=== PATIENT | female | born 1955 | race Caucasian/White ===

== ENCOUNTER 2024-09-27 12:42 | Emergency (ER) | payer MEDICARE, SELFPAY ==
--- OUTSIDE RECORDS SUMMARY | 2024-09-17 05:30 | XMS_ITS ---
Author Organization [employer] Address [address] [place] [address], [place] [address] Care Team Providers Care Tank Filler Name Role Phone None, None Primary Care Provider Indira Walker Unavailable [phone] Allergies No Known Allergies REASON FOR VISIT 4 week f/u Medications Medication SIG (Take, Route, Frequency, Duration) Notes Start Date End Date Status Claritin 10 MG 1 tablet Orally Once a day Active Collagen 500-50-0.8 MG as directed Orally Active Metoprolol Tartrate 25 MG 1 tablet with food Orally daily Active Multivitamin - 1 tablet Orally Once a day Active Social History Tobacco Use: Social History Observation Description Date Details (start date - stop date) Never Smoker NA - NA Tobacco Control (Standard) Question Answer Notes Tobacco use: Nonsmoker Vital Signs Blood pressure systolic 112 mm Hg 09/18/19 25 Blood pressure diastolic 70 mm Hg 025 Heart Rate 75 /min 09/17/2024 Respiratory Rate 16 /min 09/17/2024 Height 61 in 09/17/2024 Weight 160.0 lbs 09/17/2024 BMI 30.23 kg/m2 09/17/2024 Oximetry 98 % 09/17/2024 Encounters Encounter Location Date Provider Diagnosis [employer] [address] [place] [address] 09/17/2024 Indira Nettles Other fatigue R53.83 ; Dyslipidemia E78.5 ; SVT (supraventricular tachycardia) I47.10 ; Dietary counseling and surveillance Z71.3 ; PTTD (posterior tibial tendon dysfunction) M76.829 ; Inappropriate diet and eating habits Z72.4 ; Other intermediate accountant (current) drug therapy Z79.899 and Body mass index [BMI] 32.0-32.9, adult Z68.32 Assessments Encounter Date Diagnosis (ICD Code) Assessment Notes Treatment Notes Treatment Clinical Notes Section Notes 09/17/2024 Other fatigue (ICD-10 - R53.83) 09/17/2024 Dyslipidemia (ICD-10 - E78.5) 09/17/2024 SVT (supraventricular tachycardia) (ICD-10 - I47.10) 09/17/2024 Dietary counseling and surveillance (ICD-10 - Z71.3) 09/17/2024 PTTD (posterior tibial tendon dysfunction) (ICD-10 - M76.829) 09/17/2024 Inappropriate diet and eating habits (ICD-10 - Z72.4) 09/17/2024 Other intermediate accountant (current) drug therapy (ICD-10 - Z79.899) 09/17/2024 Body mass index [BMI] 32.0-32.9, adult (ICD-10 - Z68.32) Plan Of Treatment Next Appt Details Follow Up: 1wk inj, 4wk MORTGAGE ASSISTANT , Reason: [facility] Provider Name:Indira roberto, 10/01/2024 10:15:00 AM, [address] [place] [address], [place], [address], Provider Name:Indira roberto, 10/15/2024 09:45:00 AM, [address] [place] [address], [place], [address], Medications Administered Medication Instructions Date of Administration Dosage Notes Tirzepatide 09/17/2024 2.5 mg Progress Notes * Valentin MATIAS ADOB: 8 (69 yo F)Acc No.[id number]:09/17/2024 Progress Notes Patient: Valentin MC A Provider: Shikha Nettles APRN, ANNOUNCER :1955 A ge:69 Y S ex:Female Date:09/17/2024 Address:[address] [place] [address] [place], [id number] Subjective: * Chief Complaints: * 1 . 4 week f/u. * HPI: C onstitutional: Ms. Matias is a 68 year old female n ew patient with SVT and a history of skin cancer who presents today for weight loss consultation. She has a family history of ESRD, DM, thyroid cancer (non hereditary), [place], and obesity on her fathers side. H er PCP is at [facility] in [place], blood work was done in the last year. She has no periods, went through menopause at the age of 52. She has been diagnosed with PTTD and was told surgery could help but she would r ather work on weight loss for relief of her symptoms. She seen a physician in [facility] for this about 2 years ago. She has limited her activity due to the PTTD a nd avoids activites that exacerbate her pain and discomfort. With the reduced activity she is slowly gaining weight. She started gaining weight more in her late 20s, little by little. She didn't have issues as a child or teen, she weighed 105 as a younger person. As she got older she maintained around 168 pounds and wanted to lose weight at this size. 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 She is more fatigued and has poor energy levels. She finds it harder getting back up off floor with the weight gain. This is her highest weight. She has tried different diets including HCG diet with good weight loss of about 15 pounds. She k ept it off for a while but then went back to old eating habits. She has never taken any medications for weight loss before. She tends to eat t wo meals a day, eating more carbs and d oes get full quickly. She does eat out a lot but has smaller portions and will eat it over several days. 3 weeks ago she cut out candy. She has a gym membership for [employer] but hasn't started using it yet. Right now she is following an I MF diet, eating b etween 12p-6p. 09/17/24: Found a bag of summer clothes in her garage and found she can fit into some of them that she couldn't before. Having good apeptite suppression. Has had some cravings but she is working through it and montiroing her portions. She is down 6 pounds. She has had more salt the last week and has noted a little bit of a fluid retention. 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 * ROS: G eneral/Constitutional: Patient denies f ever , fatigue , chills , night sweats.? E ndocrine: Patient denies c old intolerance , heat intolerance , dizziness , frequent urination , excessive thirst. R espiratory: Patient denies c ough , shortness of breath , hemoptysis.? C ardiovascular: Patient denies c hest pain , dizziness , heart problems , high blood pressure. G astrointestinal: Patient denies a bdominal pain , constipation , diarrhea , nausea , vomiting. G enitourinary: Patient denies k idney problems. S kin: Patient denies r efe , itching , skin lesion(s). P sychiatric: Patient denies s ubstance abuse , feelings of depression , feelings of anxiety. * Medical History: S upraventricular tachycardia, Basal cell carcinoma, Posterior Tibial Tendon Dysfunction. * Surgical History: r emoval of basal cell- to face . * Family History: F ather: , 83- pulmonary fibrosis, CHF, atrial fibrillation. M other: , 85- ESRD, heart problems- limited history. P aternal Grand Father: , [place]. Siblings: alive, sister- diabetes and thyroid cancer (not hereditary). paternal side with history of obesity. * Social History: T obacco Use: T obacco Control (Standard) T obacco use: N onsmoker. * Medications: T aking Collagen 500-50-0.8 MG Capsule as directed Orally , Taking Claritin 10 MG Tablet 1 tablet Orally Once a day , Taking Multivitamin - Tablet 1 tablet Orally Once a day , Taking Metoprolol Tartrate 25 MG Tablet 1 tablet with food Orally daily , Medication List reviewed and reconciled with the patient * Allergies: N .K.D.A. Objective: * Vitals: H R:75/min, BP:112/70mm Hg, Wt:160.0lbs, Body Fat %: 37.9, BMI:30.23Index, RR:16/min, Ht: 61 in, Oxygen sat %:98%, Ht-cm: 154.94 cm, Wt-k.58 kg. * Examination: G eneral Examination: GENERAL APPEARANCE: p leasant, well nourished, in no acute distress. HEAD: n ormocephalic. SKIN: w arm and dry. HEART: n o jugular venous distention, no murmurs, regular rate and rhythm, S1, S2 normal. LUNGS: c lear to auscultation bilaterally. ABDOMEN: s oft, nontender, nondistended, bowel sounds present. PSYCH: c ooperative with exam, good eye contact, thought process logical, goal directed. Weight Assessment W eight Assessment Findings: O verweight. Assessment: * Assessment: 1. D yslipidemia - E78.5 (Primary) 2 . O ther fatigue - R53.83 ?3. S VT (supraventricular tachycardia) - I47.10 4 . D ietary counseling and surveillance - Z71.3 5 . P TTD (posterior tibial tendon dysfunction) - M76.829 6 . I nappropriate diet and eating habits - Z72.4 7 . O ther intermediate accountant (current) drug therapy - Z79.899 8 . B panda mass index [BMI] 32.0-32.9, adult - Z68.32 Plan: * Treatment: * Therapeutic Injections: (PATIENT SUPPLY) TIRZEPATIDE : 2.5 mg (Route: Subcutaneous) given by SHIVANI Sebastian on left arm subcutaneous * Procedure Codes: P TIRZ TIRZEPATIDE (PATIENT SUPPLY) * Follow Up: 1 wk inj, 4wk WILLOW (Reason: [facility]) * Billing Information: * Visit Code: 81176 Office Visit, Est Pt., Level 3. * Procedure Codes: PTIRZ TIRZEPATIDE (PATIENT SUPPLY). * Electronic signature of SHIVANI Naranjo on 09/27/2024 at 12:50 PM CDT Sign off status: Pending * Provider: Shikha Nettles APRN, CNP Date: 0 09/17/2024 Generated for Tiffanie gama/Lesa/eTmanoloitting on: 09/27/2024 12:50 PM CDT History and Physical Notes * Examination Category Sub-Category Detail Notes Category Not es General Examination GENERAL APPEARANCE: pleasant , well nourished, in no acute distress HEAD: normocephalic HEART: no jugular venous di stention, no murmurs, regular rate and rhythm, S1, S2 normal LUNGS: clear to auscultatio n bilaterally ABDOMEN: soft, nontender, non distended, bowel sounds present SKIN: warm and dry PSYCH: cooperative with exa m, good eye contact, thought process logical, goal directed Weight Assessment Weight Assessment Findings:: O verweight
--- OUTSIDE RECORDS SUMMARY | 2024-09-24 05:00 | XMS_ITS ---
Author Organization [employer] Address [address] [place] [address], [place] [address] Care Team Providers Care Automotive Vehicle Inspector Name Role Phone None, None Primary Care Provider Indira Walker Unavailable [phone] REASON FOR VISIT TIRZEPATIDE INJECTION Medications Medication SIG (Take, Route, Frequency, Duration) Notes Start Date End Date Status Collagen 500-50-0.8 MG as directed Orally Active Multivitamin - 1 tablet Orally Once a day Active Claritin 10 MG 1 tablet Orally Once a day Active Metoprolol Tartrate 25 MG 1 tablet with food Orally daily Active Vital Signs Heart Rate 85 /min 09/24/2024 Height 61 in 09/24/2024 Weight 158.0 lbs 09/24/2024 BMI 29.85 kg/m2 09/24/2024 Oximetry 98 % 09/24/2024 Encounters Encounter Location Date Provider Diagnosis [employer] [address] [place] [address] 09/24/2024 Indira Nettles Dyslipidemia E78.5 Assessments Encounter Date Diagnosis (ICD Code) Assessment Notes Treatment Notes Treatment Clinical Notes Section Notes 09/24/2024 Dyslipidemia (ICD-10 - E78.5) Plan Of Treatment Next Appt Details Follow Up: 1 Week, Reason: C linic-inj. Provider Name:Indira roberto, 10/01/2024 10:15:00 AM, [address] [place] [address], [place], [address], Provider Name:Indira roberto, 10/15/2024 09:45:00 AM, [address] [place] [address], [place], [address], Medications Administered Medication Instructions Date of Administration Dosage Notes Tirzepatide 09/24/2024 5 mg Progress Notes * Valentin JERRY ADOB: 8 (69 yo F)Acc No.[id number]:09/24/2024 Progress Note Patient: Valentin MC Provider: Shikha Nettles APRN, CNP :1955 A ge:69 Y S ex:Female Date:09/24/2024 Address:[facility] [place], [id number] Subjective: * Chief Complaints: * 1 . TIRZEPATIDE INJECTION. * HPI: C onstitutional: Pt. presents to clinic for Clinic Supply of Tirzepatide 2.5 Mg. Pt. reports tolerating medication well with no adverse events to note. Pt. states she is experiencing food noise increasingly often with less likelihood of getting full while eating. Pt. was offered an increase at this time to which pt. agreed. Pt. will be increase to 5 Mg. Tirz. today. * Medical History: * Medications: T aking Collagen 500-50-0.8 MG Capsule as directed Orally , Taking Claritin 10 MG Tablet 1 tablet Orally Once a day , Taking Multivitamin - Tablet 1 tablet Orally Once a day , Taking Metoprolol Tartrate 25 MG Tablet 1 tablet with food Orally daily Objective: * Vitals: H R:85/min, Wt:158.0lbs, BMI:29.85Index, Ht: 61 in, Oxygen sat %:98%, Ht-cm: 154.94 cm, Wt-k.67 kg. Assessment: * Assessment: 1. D yslipidemia - E78.5 (Primary) Plan: * Treatment: * Therapeutic Injections: (PATIENT SUPPLY) TIRZEPATIDE : 5 mg (Route: Subcutaneous) given by Manuel Reynolds LPN on subcutaneus (Dyslipidemia) * Procedure Codes: P TIRZ TIRZEPATIDE (PATIENT SUPPLY) * Follow Up: 1 Week (Reason: Clinic-inj.) * Billing Information: * Visit Code: * Procedure Codes: PTIRZ TIRZEPATIDE (PATIENT SUPPLY). * Sign off status: Completed true * Provider: Shikha Nettles APRN, CNP Date: 0 09/24/2024 Generated for Tiffanie Landon/Ronaldo on: 0 09/27/2024 12:50 PM CDT
--- OUTSIDE RECORDS SUMMARY | 2024-09-27 12:51 | XMS_ITS | Patient Health Record ---
Author Organization [facility] Address [address] [place], [place] [address] Care Team Providers Care Revenue Director Name Role Phone Caleb Muir Primary Care Provider MariiMaryanne strauss APRN Unavailable [phone] Caleb Muir MD Unavailable Unavailable Allergies Allergen (clinical drug ingredient) Drug/Non Drug Allergy documented on EMR Reaction Allergy Type Onset Date Status Wheat wheat (uncoded) SVT/AFIB Allergy Acti ve Results Component Value Reference Range Notes TSH Reviewed date:08/27/2024 02:41:09 PM Interpretation: Performing Lab:[facility] HARRIS-[id number] Vandana [id number] Rosario Butcher MD Notes/Report: Received Date: [id number] 0 0 TSH 2.42 0.40-4.50 mIU/L CMP Reviewed date:08/27/2024 02:40:47 PM Interpretation: Performing Lab:[facility] HARRIS-[id number] Pepe Lopez, [id number] Rosario Butcher MD Notes/Report: Received Date: [id number] 0 0 GLUCOSE 75 65-99 mg/dL Fasting reference interval UREA NITROGEN (BUN) 16 7-25 mg/dL CREATININE 0.79 0.50-1.05 mg/dL EGFR 82 > OR = 60 mL/min/1.73m2 BUN/CREATININE RATIO SEE NOTE: 6- (calc) Not Reported: BUN and Creatinine are within reference range. SODIUM 139 135-146 mmol/L POTASSIUM 3.9 3.5-5.3 mmol/L CHLORIDE 105 98-110 mmol/L CARBON DIOXIDE 25 20-32 mmol/L CALCIUM 10.0 8.6-10.4 mg/dL PROTEIN, TOTAL 6.7 6.1-8.1 g/dL ALBUMIN 4.1 3.6-5.1 g/dL GLOBULIN 2.6 1.9-3.7 g/dL (calc) ALBUMIN/GLOBULIN RATIO 1.6 1.0-2.5 (calc) BILIRUBIN, TOTAL 0.4 0.2-1.2 mg/dL ALKALINE PHOSPHATASE 54 37-153 U/L AST 16 10-35 U/L ALT 16 6-29 U/L CBC Reviewed date:08/27/2024 02:40:14 PM Interpretation: Performing Lab: Notes/Report: Lab Notes: Aspiration mode: Cap Piercing CMP Reviewed date:02/27/2024 03:11:44 PM Interpretation:ATCP-no Vm option Performing Lab:[facility], Dine perfect-[id number] Pepe Lopez, [id number] Rosario Butcher MD Notes/Report: Received Date: 0 0 0 GLUCOSE 77 65-99 mg/dL Fasting reference interval UREA NITROGEN (BUN) 18 7-25 mg/dL CREATININE 0.74 0.50-1.05 mg/dL EGFR 89 > OR = 60 mL/min/1.73m2 BUN/CREATININE RATIO SEE NOTE: 6-22 (calc) Not Reported: BUN and Creatinine are within reference range. SODIUM 139 135-146 mmol/L POTASSIUM 4.1 3.5-5.3 mmol/L CHLORIDE 104 98-110 mmol/L CARBON DIOXIDE 29 20-32 mmol/L CALCIUM 9.9 8.6-10.4 mg/dL PROTEIN, TOTAL 6.7 6.1-8.1 g/dL ALBUMIN 4.0 3.6-5.1 g/dL GLOBULIN 2.7 1.9-3.7 g/dL (calc) ALBUMIN/GLOBULIN RATIO 1.5 1.0-2.5 (calc) BILIRUBIN, TOTAL 0.4 0.2-1.2 mg/dL ALKALINE PHOSPHATASE 53 37-153 U/L AST 15 10-35 U/L ALT 16 6-29 U/L LIPID PANEL Reviewed date:02/27/2024 03:01:38 PM Interpretation: Performing Lab:[facility] HARRIS-[id number] Pepe Lopez, [id number] Rosario Butcher MD Notes/Report: Received Date: [id number] 0 0 0 CHOLESTEROL, TOTAL 194 <200 mg/dL HDL CHOLESTEROL 51 > OR = 50 mg/dL TRIGLYCERIDES 206 <150 mg/dL If a non-fasting specimen was collected, consider repeat triglyceride testing on a fasting specimen if clinically indicated. Daniella et al. J. of Clin. Lipidol. 2015;9:129-169. LDL-CHOLESTEROL 111 Reference range: <100 Desirable range <100 mg/dL for primary prevention; <70 mg/dL for patients with CHD or diabetic patients with > or = 2 CHD risk factors. LDL-C is now calculated using the Bubba calculation, which is a validated novel method providing better accuracy than the Friedewald equation in the estimation of LDL-C. Tal SS et al. BAILEY. 2013;310(19): 0691-3244 (http://education.[employer]/faq/FAQ16 4) CHOL/HDLC RATIO 3.8 <5.0 (calc) NON HDL CHOLESTEROL 143 <130 mg/dL (calc) For patients with diabetes plus 1 major ASCVD risk factor, treating to a non-HDL-C goal of <100 mg/dL (LDL-C of <70 mg/dL) is considered a therapeutic option. TSH Reviewed date:02/27/2024 03:01:31 PM Interpretation: Performing Lab:[facility] HARRIS-[id number] Pepe Lopez, [id number] Rosario Butcher MD Notes/Report: Received Date: [id number] 0 0 0 TSH 2.75 0.40-4.50 mIU/L CBC Reviewed date:02/27/2024 03:01:24 PM Interpretation: Performing Lab: Notes/Report: Lab Notes: Aspiration mode: Cap Piercing URINALYSIS DIP Reviewed date:02/27/2024 03:01:16 PM Interpretation: Performing Lab: Notes/Report: [employer] ([id number]), [facility] Manager Discovery: BG Notes: Electrocardiogram (EKG) Reviewed date:02/27/2024 01:58:23 PM Interpretation: Performing Lab: Notes/Report: Chest X ray (PA lateral) Reviewed date:02/28/2024 10:44:29 AM Interpretation: Performing Lab: Notes/Report: Reason For Referral Reason Eval and Treat Diagnosis 1 Hearing loss of righ t ear, unspecified hearing loss type (H91.91) Referral Organization [facility] Referring Provider First Name [facility] Referring Provider Last Name [facility] Referring Provider Speciality Nurse Prac titioner Referred Provider Jabari Jones Referred Provider Specialty Otolaryngolo gy General Notes Senait Owens 02/06 02:06:34 PM >Requesting an appt pleaseTheo Tiffany S 03/17/2024 12:33:41 PM >notes in chart Referral Priority Routine Referral Appointment Date 03/17/2024 Reason Eval and Treat Diagnosis 1 History of basal austin l cancer (Z85.828) Diagnosis 2 History of melanoma (Z85.820) Referral Organization [facility] Referring Provider First Name [facility] Referring Provider Last Name [facility] Referring Provider Speciality Nurse Prac titioner Referred Provider Darci Hope Referred Provider Specialty Dermatology General Notes Senait Owens 02/06 01:43:54 PM >Requesting an appt please Referral Priority Routine Medications Medication SIG (Take, Route, Frequency, Duration) Notes Start Date End Date Status Multivitamin - 1 tablet Orally Once a day Active D-Mannose Active Digestive Advantage Active Metoprolol Tartrate 25 MG 1 tablet with food Orally once a day; Duration: 90 days Active Social History Tobacco Use: Social History Observation Description Date Details (start date - stop date) Never Smoker NA - NA Smoker Question Answer Notes Patient is a: never smoker Alcohol Question Answer Notes How often did you have a dri nk containing alcohol in the past year? never (0 points) Problems Problem Type SNOMED Code ICD Code Onset Dates Problem Status W/U Status Risk Notes Problem ROVER TENDER patient onl y (Z63.8) Active confirmed Problem External hemorrhoid (49345138) External hemorrhoid (K64.4) Active confirmed Problem Diverticular disease of colon (048795285) Diverticulosis (K57.90) Active confirmed Problem Hearing loss (83443348) Hearing loss of right ear, unspecified hearing loss type (H91.91) Active confirmed Problem History of malignant melanoma of the skin (035149292614) History of melanoma (Z85.820) Active confirmed Vital Signs Heart Rate 68 /min 08/26/2024 Temperature 97.9 degrees Fahrenheit 08/26/2024 Oximetry 95 08/26/2024 Blood pressure diastolic 70 mm Hg 08/26/2024 Height 61 in 08/26/2024 Blood pressure systolic 110 mm Hg 08/26/2024 Weight 165.6 lbs 08/26/2024 BMI 31.29 kg/m2 08/26/2024 Encounters Encounter Location Date Provider Diagnosis [address] [address] 02/26/2024 Maryanne Colvin SVT (supraventricula r tachycardia) I47.10 ; Postmenopausal Z78.0 ; Other fatigue R53.83 ; Encounter for screening for diabetes mellitus Z13.1 ; Encounter for screening for lipid disorder Z13.220 ; Encounter for screening for cardiovascular disorders Z13.6 ; Hearing loss of right ear, unspecified hearing loss type H91.91 ; History of basal cell cancer Z85.828 ; History of melanoma Z85.820 ; LLQ abdominal pain R10.32 ; External hemorrhoid K64.4 ; Mammogram declined Z53.20 ; Diverticulosis K57.90 and Encounter to establish care Z76.[address] [address] 08/26/2024 Maryanne Colvin Screening for cardiovascular condition Z13.6 ; Encounter for general adult medical examination without abnormal findings Z00.00 ; ROVER TENDER patient only Z63.8 ; Hearing loss of right ear, unspecified hearing loss type H91.91 ; History of melanoma Z85.820 ; External hemorrhoid K64.4 ; Diverticulosis K57.90 ; Medication management Z79.899 ; Screening mammography declined Z53.20 ; SVT (supraventricular tachycardia) I47.10 and History of basal cell cancer Z85.[address] [address] 02/12/2024 Caleb Muir Assessments Encounter Date Diagnosis (ICD Code) Assessment Notes Treatment Notes Treatment Clinical Notes Section Notes 02/26/2024 Postmenopausal (ICD-10 - Z78.0) 02/26/2024 SVT (supraventricular tachycardia) (ICD-10 - I47.10) stable on metoprolol 08/26/2024 Encounter for general adult medical examination without abnormal findings (ICD-10 - Z00.00) 08/26/2024 Screening for cardiovascular condition (ICD-10 - Z13.6) 08/26/2024 ROVER TENDER patient only (ICD-10 - Z63.8) 02/26/2024 Other fatigue (ICD-10 - R53.83) stable labs pending 02/26/2024 Encounter for screening for diabetes mellitus (ICD-10 - Z13.1) 08/26/2024 Hearing loss of right ear, unspecified hearing loss type (ICD-10 - H91.91) stable 08/26/2024 History of melanoma (ICD-10 - Z85.820) following [facility] 02/26/2024 Encounter for screening for lipid disorder (ICD-10 - Z13.220) 02/26/2024 Encounter for screening for cardiovascular disorders (ICD-10 - Z13.6) 08/26/2024 External hemorrhoid (ICD-10 - K64.4) discussed care 02/26/2024 Hearing loss of right ear, unspecified hearing loss type (ICD-10 - H91.91) exam normal, will refer to ENT 08/26/2024 Diverticulosis (ICD-10 - K57.90) controlled with diet/supplement s 08/26/2024 Medication management (ICD-10 - Z79.899) 02/26/2024 History of basal cell cancer (ICD-10 - Z85.828) refer to [facility] 02/26/2024 History of melanoma (ICD-10 - Z85.820) refer to [facility] 08/26/2024 Screening mammography declined (ICD-10 - Z53.20) understands risk 02/26/2024 LLQ abdominal pain (ICD-10 - R10.32) will get CT scan with recent abnormal colonoscopy 02/26/2024 External hemorrhoid (ICD-10 - K64.4) discussed care 08/26/2024 SVT (supraventricular tachycardia) (ICD-10 - I47.10) stable on metoprolol 08/26/2024 History of basal cell cancer (ICD-10 - Z85.828) following [facility] 02/26/2024 Mammogram declined (ICD-10 - Z53.20) understands risk 02/26/2024 Diverticulosis (ICD-10 - K57.90) controlled with diet/supplement s 02/26/2024 Encounter to establish care (ICD-10 - Z76.89) 02/26/2024 Other Patient evaluated and treated by Maryanne Colvin APRN and chart reviewed and signed off by Dr. Muir. 08/26/2024 Other Patient evaluated and treated by Maryanne Colvin APRN and chart reviewed and signed off by Dr. Muir. Visit Summary given to patient I REVIEWED THE PATIENT'S MEDICATIONS WITH THEM DURING THEIR VISIT Plan Of Treatment Pending Test Test Name Order Date Bone Density 02/26/2024 Next Appt Details Provider Name:Maryanne strauss, 02/27/2025 09:30:00 AM, [address] [place], [address], Insurance Providers Payer Name Payer Address Payer Phone Subscriber Number Group Number Insured Name Patient Relationship to Insured Coverage Start Date Coverage End Date [employer] [address] [address] [place] [address] [id number] Valentin Matias Self - patient is the insured Medical (General) History Medical History History ICD Code Basil cell and melanoma skin cancer
--- OUTSIDE RECORDS SUMMARY | 2024-09-27 12:51 | XMS_ITS | Patient Health Record ---
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 Role Phone None, None Primary Care Provider Indira Walker Unavailable [phone] Allergies No Known Allergies Reason For Referral No Information Medications Medication SIG (Take, Route, Frequency, Duration) Notes Start Date End Date Status Collagen 500-50-0.8 MG as directed Orally Active Multivitamin - 1 tablet Orally Once a day Active Claritin 10 MG 1 tablet Orally Once a day Active Metoprolol Tartrate 25 MG 1 tablet with food Orally daily Active Social History Tobacco Use: Social History Observation Description Date Details (start date - stop date) Never Smoker NA - NA Tobacco Control (Standard) Question Answer Notes Tobacco use: Nonsmoker Problems Problem Type SNOMED Code ICD Code Onset Dates Problem Status W/U Status Risk Notes Problem Fatigue (87072917) Other fatigue (R53.83) Active confirmed Problem Body mass index 30.00 to 34.99 (330458599769574) Body mass index [BMI] 31.0-31.9, adult (Z68.31) Active confirmed Problem Body mass index 30.00 to 34.99 (674971090724821) Body mass index [BMI] 32.0-32.9, adult (Z68.32) Active confirmed Problem Body mass index 30.00 to 34.99 (781874339424351) Body mass index [BMI] 33.0-33.9, adult (Z68.33) Active confirmed Problem Supraventricular tachycardia (4758401) SVT (supraventr icular tachycardia ) (I47.10) Active confirmed Problem Tibialis tendinitis (64133588) PTTD (posterior tibial tendon dysfunction ) (M76.829) Active confirmed Vital Signs Heart Rate 85 /min 09/24/2024 Respiratory Rate 16 /min 09/17/2024 Oximetry 98 % 09/24/2024 Blood pressure diastolic 70 mm Hg 09/17/2024 Height 61 in 09/24/2024 Blood pressure systolic 112 mm Hg 09/17/2024 Weight 158.0 lbs 09/24/2024 BMI 29.85 kg/m2 09/24/2024 Encounters Encounter Location Date Provider Diagnosis [address] [place] [address] 09/17/2024 Indira Yoon Other fatigue R53.83 ; Dyslipidemia E78.5 ; SVT (supraventricular tachycardia) I47.10 ; Dietary counseling and surveillance Z71.3 ; PTTD (posterior tibial tendon dysfunction) M76.829 ; Inappropriate diet and eating habits Z72.4 ; Other buttermaker (current) drug therapy Z79.899 and Body mass index [BMI] 32.0-32.9, adult Z68.32 [facility] [address] [place] [address] 06/25/2024 Indira Yoon Other fatigue R53.83 ; SVT (supraventricular tachycardia) I47.10 ; Dietary counseling and surveillance Z71.3 ; Weight gain R63.5 ; PTTD (posterior tibial tendon dysfunction) M76.829 ; Inappropriate diet and eating habits Z72.4 ; Other retirement (current) drug therapy Z79.899 and Body mass index [BMI] 33.0-33.9, adult Z68.33 [facility] [address] [place] [address] 07/02/2024 Indira [place] Other retirement (current) drug therapy Z79.899 [facility] [address] [place] [address] 07/09/2024 Indira Yoon Other buttermaker (current) drug therapy Z79.899 ; Other fatigue R53.83 and SVT (supraventricular tachycardia) I47.10 [facility] [address] [place] [address] 07/16/2024 Indira [place] Other buttermaker (current) drug therapy Z79.899 and SVT (supraventricular tachycardia) I47.[address] [facility] [address] [place] [address] 07/23/2024 Indira Yoon Other fatigue R53.83 ; Dyslipidemia E78.5 ; SVT (supraventricular tachycardia) I47.10 ; Dietary counseling and surveillance Z71.3 ; PTTD (posterior tibial tendon dysfunction) M76.829 ; Inappropriate diet and eating habits Z72.4 ; Other buttermaker (current) drug therapy Z79.899 and Body mass index [BMI] 32.0-32.9, adult Z68.32 [facility] [address] [place] [address] 07/30/2024 Indira [place] SVT (supraventricula r tachycardia) I47.10 and Inappropriate diet and eating habits Z72.4 [facility] [address] [place] [address] 08/06/2024 Indira [place] SVT (supraventricula r tachycardia) I47.10 and Inappropriate diet and eating habits Z72.4 [facility] [address] [place] [address] 08/13/2024 Indira Yoon Inappropriate diet a nd eating habits Z72.4 [facility] [address] [place] [address] 08/20/2024 Indira Yoon Other fatigue R53.83 ; Dyslipidemia E78.5 ; SVT (supraventricular tachycardia) I47.10 ; Dietary counseling and surveillance Z71.3 ; PTTD (posterior tibial tendon dysfunction) M76.829 ; Inappropriate diet and eating habits Z72.4 ; Other buttermaker (current) drug therapy Z79.899 and Body mass index [BMI] 31.0-31.9, adult Z68.31 [facility] [address] [place] [address] 08/27/2024 Indira Yoon Dyslipidemia E78.5 [facility] [address] [place] [address] 09/03/2024 Indira Yoon Dyslipidemia E78.5 [facility] [address] [place] [address] 09/10/2024 Indira [place] Dyslipidemia E78.5 [facility] [address] [place] [address] 09/24/2024 Indira Yoon Dyslipidemia E78.5 [facility] [address] [place] [address] 08/06/2024 Indira [place]ett[place] [facility] [address] [place] [address] 08/20/2024 Indira Nettles Assessments Encounter Date Diagnosis (ICD Code) Assessment Notes Treatment Notes Treatment Clinical Notes Section Notes 06/25/2024 Other fatigue (ICD-10 - R53.83) I will request labs from her PCP for our records. Should I need anything else I will let her know. May consider a vitamin D. 06/25/2024 SVT (supraventricular tachycardia) (ICD-10 - I47.10) Her HR is controlled with metoprolol. She will continue on this as prescribed by her PCP. I will avoid phentermine for weight loss to prevent any rhythm issues. 07/02/2024 Other buttermaker (current) drug therapy (ICD-10 - Z79.899) 07/09/2024 Other retirement (current) drug therapy (ICD-10 - Z79.899) 07/16/2024 Other buttermaker (current) drug therapy (ICD-10 - Z79.899) 07/23/2024 Other fatigue (ICD-10 - R53.83) 07/23/2024 Dyslipidemia (ICD-10 - E78.5) Labs were received and reviewed from Dr. Vasquez in [place]. Triglycerides and LDL are elevated. 08/06/2024 SVT (supraventricular tachycardia) (ICD-10 - I47.10) No changes to her symptoms, continue taking metoprolol. 08/13/2024 Inappropriate diet and eating habits (ICD-10 - Z72.4) 08/20/2024 Other fatigue (ICD-10 - R53.83) 08/27/2024 Dyslipidemia (ICD-10 - E78.5) 09/03/2024 Dyslipidemia (ICD-10 - E78.5) 09/10/2024 Dyslipidemia (ICD-10 - E78.5) 09/17/2024 Other fatigue (ICD-10 - R53.83) 07/30/2024 SVT (supraventricular tachycardia) (ICD-10 - I47.10) No changes to her symptoms, continue taking metoprolol. 09/24/2024 Dyslipidemia (ICD-10 - E78.5) 08/06/2024 Inappropriate diet and eating habits (ICD-10 - Z72.4) 08/20/2024 SVT (supraventricular tachycardia) (ICD-10 - I47.10) 08/20/2024 Dyslipidemia (ICD-10 - E78.5) She will continue to work on her diet, exercise, and weight loss. 07/30/2024 Inappropriate diet and eating habits (ICD-10 - Z72.4) 09/17/2024 Dyslipidemia (ICD-10 - E78.5) 07/23/2024 SVT (supraventricular tachycardia) (ICD-10 - I47.10) No changes to her symptoms, continue taking metoprolol. 07/16/2024 SVT (supraventricular tachycardia) (ICD-10 - I47.10) Her HR is controlled with metoprolol. She will continue on this as prescribed by her PCP. I will avoid phentermine for weight loss to prevent any rhythm issues. 07/09/2024 Other fatigue (ICD-10 - R53.83) I will request labs from her PCP for our records. Should I need anything else I will let her know. May consider a vitamin D. 06/25/2024 Dietary counseling and surveillance (ICD-10 - Z71.3) We have discussed the importance of diet, exercise, water, and sleep in weight loss. I have educated patient that 5-7% weight loss is a good initial attainable goal, and has health benefits of reduced risk of HTN and DM, etc. We have discussed the negative impact of skipping meals on metabolism, and I recommend either 6 small meals a day vs. 3 meals and 2 snacks. We have discussed pros and cons of different diet approaches including low carb, IM, and calorie counting. I have provided patient with handouts on the DASH diet to use as a guide for healthy food choices and reviewed handout with patient. For healthy weight loss, I have recommended that patient aim for a protein minimum of 100g, and maximum of 1400 calories per day. I have also given patient handout of high protein foods/snack choices. I have recommended using an dominguez like [employer], [employer], etc. for logging this. Recommended increasing water intake with an ultimate goal of 80oz per day (body weight/2= # of oz). Exercise goal 30 min 3x per week of intentional exercise or 10,000 steps per day, which patient can keep track of with a smart watch or smart phone. Sleep goal of 8 hours per night. We have discussed the importance of normal sleep hours for the body to rest and sleeps influence on hormone levels that can ultimately affect weight loss. Patient verbalizes understanding that medication is an addition to these 4 core requirements for healthy lifestyle and weight loss. We have reviewed medication options including short vs. buttermaker use, and oral vs. injectable routes including Phentermine, Topiramate, Contrave, Semaglutide, etc. Side effect profile reviewed. Patient would like to start tirzepatide injections. Patient will receive first dose today at 2.5mg and return weekly for injections. Administration, dosage titration, and studies showing 1 year of therapy for maximum medication benefit were discussed. Side effect profiles reviewed include swelling/redness /itching at the injection site, tiredness, nausea, vomiting, diarrhea, or constipation may occur. Nausea usually lessens as you continue to use Semaglutide. Risk of pancreas and gallbladder disease (s/s persistent N/V, abdominal, or stomach pain) and thyroid gland malignancy (including MTC). We also reviewed and discussed the pricing sheet for the medication along with other costs including self injection vs. office injections. She is aware of the FDAs decision on compounded tirzepatide and how this will affect her in the future. She will need to order a vial as soon as she is able. She will come back to see me in a month for further evaluation of her weight and goals. Before pictures and measurements were obtained today. I strongly recommended that she do a body composition scan at [facility] via [facility] or with Keke Varela at [facility] via InBody scan for more detailed/accurat e body fat percentage. I will request labs from her PCP for our records. Patient encouraged to call sooner with any questions or concerns. All question that were asked were answered. Patient is satisfied with plan of care. 07/09/2024 SVT (supraventricular tachycardia) (ICD-10 - I47.10) Her HR is controlled with metoprolol. She will continue on this as prescribed by her PCP. I will avoid phentermine for weight loss to prevent any rhythm issues. 07/23/2024 Dietary counseling and surveillance (ICD-10 - Z71.3) As she is having good weight loss and appetite suppression I will continue her tirzepatide at 2.5mg weekly. I had a long discussion with her on the other positive signs that she is having and again discussed a healthy safe weightloss amount per week/month with her. She is doing well with her diet and has started being more active. She is aware that there are no changes to the FDAs decision on compounded tirzepatide. She will need to order a vial in the next 1-2 weeks, once done a prescription will be sent to [facility]. I discussed a body comp again today and how this can provide an insightful look at her body fat and muscle. Should she have one done she will bring the results to me. I will see her back with me in a month for further evaluation of her weight and goals. All questions were answered and she agrees with this plan. 06/25/2024 Weight gain (ICD-10 - R63.5) 08/20/2024 Dietary counseling and surveillance (ICD-10 - Z71.3) As she is doing well with weight loss and continued appetite suppression she will continue with tirzepatide 2.5mg weekly. She will continue to eat well and stay active. I praised her on her hard work. Should she travel she will let me know so we can make a plan to continue tirzepatide. I will see her back with me in a month for further evaluation of her weight and goals. All questions were answered and she agrees with this plan. 09/17/2024 SVT (supraventricular tachycardia) (ICD-10 - I47.10) 08/20/2024 PTTD (posterior tibial tendon dysfunction) (ICD-10 - M76.829) 07/23/2024 PTTD (posterior tibial tendon dysfunction) (ICD-10 - M76.829) 09/17/2024 Dietary counseling and surveillance (ICD-10 - Z71.3) 06/25/2024 PTTD (posterior tibial tendon dysfunction) (ICD-10 - M76.829) 06/25/2024 Inappropriate diet and eating habits (ICD-10 - Z72.4) 07/23/2024 Inappropriate diet and eating habits (ICD-10 - Z72.4) 08/20/2024 Inappropriate diet and eating habits (ICD-10 - Z72.4) 09/17/2024 PTTD (posterior tibial tendon dysfunction) (ICD-10 - M76.829) 08/20/2024 Other buttermaker (current) drug therapy (ICD-10 - Z79.899) 09/17/2024 Inappropriate diet and eating habits (ICD-10 - Z72.4) 07/23/2024 Other buttermaker (current) drug therapy (ICD-10 - Z79.899) 06/25/2024 Other buttermaker (current) drug therapy (ICD-10 - Z79.899) 06/25/2024 Body mass index [BMI] 33.0-33.9, adult (ICD-10 - Z68.33) 07/23/2024 Body mass index [BMI] 32.0-32.9, adult (ICD-10 - Z68.32) 09/17/2024 Other retirement (current) drug therapy (ICD-10 - Z79.899) 08/20/2024 Body mass index [BMI] 31.0-31.9, adult (ICD-10 - Z68.31) 09/17/2024 Body mass index [BMI] 32.0-32.9, adult (ICD-10 - Z68.32) 06/25/2024 Other I spent approximately 45 minutes with patient reviewing health history, dietary and exercise habits, educating on lifestyle changes and purpose/side effects of medication and formulating patient centered plan of care. Plan Of Treatment Next Appt Details Provider Name:Indira roberto, 10/01/2024 10:15:00 AM, [address] [place] [address], [phone], Provider Name:Indira roberto, 10/15/2024 09:45:00 AM, [address] [place] [address], [phone], Insurance Providers Payer Name Payer Address Payer Phone Subscriber Number Group Number Insured Name Patient Relationship to Insured Coverage Start Date Coverage End Date [facility] [address] [address] [place] [phone] [id number] Valentin JERRY Self - patient is the insured Medications Administered Medication Instructions Date of Administration Dosage Notes Tirzepatide 08/20/2024 2.5 mg Tirzepatide 08/27/2024 2.5 mg Tirzepatide 09/03/2024 2.5 mg Tirzepatide 09/10/2024 2.5 mg Tirzepatide 09/17/2024 2.5 mg Tirzepatide 09/24/2024 5 mg Tirzepatide 06/25/2024 2.5 mg Tirzepatide 07/02/2024 2.5 mg Tirzepatide 07/09/2024 2.5 mg Tirzepatide 07/16/2024 2.5 mg Tirzepatide 07/23/2024 2.5 mg Tirzepatide 07/30/2024 2.5 mg Tirzepatide 08/06/2024 2.5 mg Tirzepatide 08/13/2024 2.5 mg Medical (General) History Medical History History ICD Code supraventricular tachycardia basal cell carcinoma Posterior Tibial Tendon Dysfunction Surgical History Surgery Date(Month/Year) removal of basal cell- to face
[2024-09-27 12:59] VITALS: BP 115/80; PULSE 76; RESP 16; TEMP 36.7; O2SAT 97; BMI 29.2
[2024-09-27 13:09] VITALS: BP 127/86; PULSE 73; RESP 14; O2SAT 97
--- NOTE | 2024-09-27 13:22 | CTR_ITS ---
PROCEDURE INFORMATION: Exam: CT Head Without Contrast Exam date and time: 09/27/2024 1:52 PM Age: 69 years old Clinical indication: Pain; Headache; Additional info: Posterior headache TECHNIQUE: Imaging protocol: Computed tomography of the head without contrast. Radiation optimization: All CT scans at this facility use at least one of these dose optimization techniques: automated exposure control; mA and/or kV adjustment per patient size (includes targeted exams where dose is matched to clinical indication); or iterative reconstruction. COMPARISON: No relevant prior studies available. RADIATION DOSE METRICS: Total DLP (mGy-cm): 1013.59 FINDINGS: Brain: Mild age-appropriate cortical atrophy. Mild periventricular white matter hypoattenuation which likely represent chronic ischemic small-vessel disease. No acute intracranial hemorrhage. No acute territorial infarction. Cerebral ventricles: No ventriculomegaly. Paranasal sinuses: Visualized sinuses are unremarkable. No fluid levels. Mastoid air cells: Visualized mastoid air cells are well aerated. Bones: Unremarkable. No acute fracture. Soft tissues: Unremarkable. CT/CT head wo con* [id number] IMPRESSION: No acute intracranial abnormality.
[2024-09-27 14:41] VITALS: BP 117/82; PULSE 78; O2SAT 94
[2024-09-27 15:01] VITALS: BP 111/79; PULSE 73; O2SAT 94
--- NOTE | 2024-09-27 15:45 | W.ED.HA ---
Documented by User: CHANDA Andrade 09/27/24 15:49 HPI - Headache General: Chief Complaint: Headache Stated Complaint: pain in back of skull / headache Time Seen by Provider: 09/27/24 13:08 Source: patient Mode of arrival: ambulatory Limitations: no limitations History of Present Illness: Patient is a 69-year-old female who presents with a headache that began yesterday, described as posterior headache and radiating down in the neck and towards the left ear. She reports associated dizziness and transient difficulty with comprehension at home, prompting her ED visit. She notes recent increase in her Trileptal dose and subsequently learned that headache can be a potential side effect, she is concerned about this. She denied fever, vision changes, photophobia, nausea, vomiting, weakness, or sensory changes. Of note, she reports her brother had a brain tumor and she was concerned about this possibility and is notably anxious at this time. She is taken ibuprofen with relief, and at the time of examination in the ED, stating she is headache free and feels well. She has no pertinent past medical history, no history of hypertension. No history of stroke. She is not anticoagulated. Does not report any head trauma. MD elicited complaint: headache Onset (ago): day(s) Onset description: on awakening Location: occipital and down into neck Severity: mild Quality & Timing: aching Context: new medication Associated symptoms: Deny chest pain, fever(s), lightheadedness, nausea, rash or vomiting Treatments prior to arrival: ibuprofen Related Data Home Medications ?Medication ?Instructions ?Recorded ?Confirmed metoprolol tartrate 25 mg tablet 25 mg PO DAILY 09/27/24 09/27/24 tirzepatide (weight loss) 5 mg/0.5 5 mg SUBCUT Q7D 09/27/24 09/27/24 mL subcutaneous pen injector Allergies Allergy/AdvReac Type Severity Reaction Status Date / Time No Known Allergies Allergy Verified 09/27/24 13:02 Review of Systems General: Reports: 10 or more systems reviewed and unremarkable except in HPI and below Const: Denies: fever(s), chills or fatigue Eyes: Denies: change in vision ENMT: Denies: throat pain, ear or mastoid pain or nasal discharge Card: Denies: chest pain, palpitations, swelling of feet/ankles or lightheadedness Resp: Denies: dyspnea, productive cough or wheezing GI: Denies: abdominal pain, nausea, vomiting, diarrhea or constipation : Denies: flank pain, difficulty voiding, dysuria or urinary frequency Musc: Reports: neck pain; Denies: back pain or joint pain Skin/Breast: Denies: rash Neuro: Reports: headache(s) and dizziness; Denies: numbness in extremities or weakness in extremities Physical Exam Const: COMMON NORMALS: no acute distress, patient oriented x3 and no limitations GENERAL APPEARANCE: cooperative, well developed and anxious ORIENTATION/CONSCIOUSNESS: Yes awake, Yes oriented to person, Yes oriented to place and Yes oriented to time HENMT: COMMON NORMALS: normocephalic, atraumatic and hearing grossly normal bilaterally HEAD & SCALP: normocephalic and atraumatic Eye: COMMON NORMALS: Equal, round and reactive pupils present, EOMs intact bilaterally and conjunctivae normal CONJUNCTIVA: Yes conjunctivae normal PUPIL: Yes Equal, round and reactive pupils present Neck/C-Spine: COMMON NORMALS: full ROM, supple and no JVD CERVICAL SPINE: Yes cervical ROM normal, No pain with cervical ROM and No Cervical spine tenderness Resp: COMMON NORMALS: normal respiratory effort, No retractions, No use of accessory muscles and clear to auscultation bilaterally AUSCULTATION: clear to auscultation bilaterally Cardio: COMMON NORMALS: no JVD, regular rate, regular rhythm, No clicks present (Cardio), No murmurs present (Cardio) and No rub (Cardio) RATE: regular rate RHYTHM: regular rhythm Extremity: COMMON NORMALS: normal to inspection, full ROM and capillary refill normal Neuro: COMMON NORMALS: patient oriented x3, CN's II-XII intact bilaterally, moves all extremities, no focal motor deficits and no sensory deficits noted SENSORIUM/ORIENTATION: Yes oriented to person, Yes oriented to place and Yes oriented to time COORDINATION/BALANCE: [id number] test normal, ovee-[id number] test normal and tandem gait normal GAIT: Yes Normal gait present MOTOR EXAM: 5/5 motor strength present throughout, Pronator motor function not present, no tremor noted, no asterixis, Motor fasciculations not present and Normal motor muscle tone present throughout COORDINATION: [id number] test normal, fmqw-za-etha test normal and tandem gait normal Psych: COMMON NORMALS: mental status grossly normal and Normal thought process present THOUGHT PROCESS: Normal thought process present Skin: COMMON NORMALS: no rashes or lesions noted GENERAL SKIN EXAM: no rashes or lesions noted Course Vital Signs: Vital signs: Vital Signs Temperature 98.1 F 09/27/24 12:59 Pulse Rate 73 09/27/24 15:01 Respiratory Rate 14 09/27/24 13:09 Blood Pressure 111/79 09/27/24 15:01 Pulse Oximetry 94 09/27/24 15:01 Oxygen Delivery Me thod Room Air 09/27/24 13:09 MDM - Headache Medical Decision Making This patient is a 69-year-old female with no headache. Although advanced age and reported transient neurological symptoms or potential red flags, she is neurologically intact on exam with no focal deficits and no ongoing symptoms. CT head was obtained and was normal, effectively ruling out acute intracranial hemorrhage or mass effect. No signs of meningitis, temporal arteritis, or other emergent secondary headache etiologies. Headache may be related to her recent medication adjustment (Tirzepatide) or benign primary headache process. Given her normal exam, negative imaging, resolution of symptoms, and clinical stability, she is appropriate for discharge home with strict return precautions for recurrent or worsening headache, focal neurological changes, visual loss, fevers, or difficulty speaking/walking. She was advised to follow-up with her primary care provider for ongoing management and discussion of medication side effects. Lab Data Radiology Impressions Head CT 09/27/24 13:22 IMPRESSION: No acute intracranial abnormality. All radiology interpretation(s) finalized by discharge Discharge Plan Discharge Patient Disposition: Home Clinical Impression: Headache Qualifiers: Headache type: unspecified Headache chronicity pattern: acute headache Intractability: not intractable Qualified Code(s): R51.9 - Headache, unspecified Condition: Stable Prescriptions: No Action metoprolol tartrate 25 mg tablet 25 mg PO DAILY tirzepatide (weight loss) 5 mg/0.5 mL Pen Injector 5 mg SUBCUT Q7D Rx Instructions: Sunday' Discharge Orders: Discharge ED (Routine); Ordered 09/27/24 Ordered By: Lawrence Pearl Patient Instructions: Patient Portal & [facility]zer Instructions Activity Restrictions/Additional Instructions: Headache Discharge Instructions Discharge Instructions: Headache in the Setting of Tirzepatide Dose Escalation Diagnosis and Etiology: 69-year-old female presenting with several days of headache, worse in the morning. Head CT was negative for acute intracranial pathology. Neurological and general examination were normal. Recent increase in tirzepatide dose; headache is a recognized adverse effect of tirzepatide, most commonly occurring during dose escalation and typically mild to moderate in severity. Expected Course: - Headache associated with tirzepatide is generally self-limited and resolves as the patient acclimates to the new dose. - Most adverse events with tirzepatide, including headache, occur during the dose-escalation period and tend to decrease over time. - No evidence of secondary headache or acute intracranial process on imaging or exam. Symptom Management: - For mild to moderate headache, recommend acetaminophen or NSAIDs as first-line therapy, unless contraindicated. - Maintain adequate hydration and regular sleep. - Avoid medication overuse (limit use of analgesics to <= days per week to prevent rebound headache). - If headaches are frequent (>=0 per month) or disabling, consider preventive therapy (e.g., tricyclic antidepressants), per consensus guidelines. Tirzepatide Safety Monitoring: - Gastrointestinal adverse events (nausea, diarrhea, constipation) are most common; headache occurs in 6?13% of patients, typically during dose escalation. - Serious adverse events are rare and occur at similar rates to placebo. - Wellness Nurse Rn regarding black box warning for thyroid C-cell tumors; tirzepatide is contraindicated in patients with personal/family history of medullary thyroid carcinoma or MEN2. - Tirzepatide slows gastric emptying and may affect absorption of oral medications; review concomitant medications for potential interactions. Return Precautions: Advise immediate return to ED or contact with provider for any of the following: - Sudden, severe ( worst ever ) headache - New focal neurological deficits (weakness, numbness, vision changes, speech difficulty) - Altered mental status or confusion - Fever, neck stiffness, photophobia - Persistent vomiting or inability to tolerate oral intake - Signs of severe allergic reaction (rash, swelling, difficulty breathing) - Symptoms suggestive of pancreatitis (severe abdominal pain, persistent vomiting) Follow-Up: - Routine follow-up with primary care or endocrinology within 1?2 weeks to reassess headache and tirzepatide tolerability. - If headache persists or worsens, consider further evaluation for secondary causes. Patient Education: - Headache is a known, generally mild side effect of tirzepatide, especially after dose increases. - Most headaches resolve with time; monitor for any concerning symptoms as above. - Maintain regular medication schedule and do not discontinue tirzepatide without consulting provider. Summary: Patient is stable for discharge. Headache is likely benign and related to recent tirzepatide dose escalation. Imaging and exam are reassuring. Return precautions and follow-up have been provided. Print Language: Nigerien Coding Level of Care Code ED Track Repairer for Chg Fwd Documented by User: Gerber Cleveland DO 09/29/24 07:11 HPI - Headache General: Chief Complaint: Headache Stated Complaint: pain in back of skull / headache Time Seen by Provider: 09/27/24 13:08 Related Data Home Medications ?Medication ?Instructions ?Recorded ?Confirmed metoprolol tartrate 25 mg tablet 25 mg PO DAILY 09/27/24 09/27/24 tirzepatide (weight loss) 5 mg/0.5 5 mg SUBCUT Q7D 09/27/24 09/27/24 mL subcutaneous pen injector Allergies Allergy/AdvReac Type Severity Reaction Status Date / Time No Known Allergies Allergy Verified 09/27/24 13:02 Course Vital Signs: Vital signs: Vital Signs Temperature 98.1 F 09/27/24 12:59 Pulse Rate 73 09/27/24 15:01 Respiratory Rate 14 09/27/24 13:09 Blood Pressure 111/79 09/27/24 15:01 Pulse Oximetry 94 09/27/24 15:01 Oxygen Delivery Me thod Room Air 09/27/24 13:09 MDM - Headache Medical Decision Making This patient is a 69-year-old female with no headache. Although advanced age and reported transient neurological symptoms or potential red flags, she is neurologically intact on exam with no focal deficits and no ongoing symptoms. CT head was obtained and was normal, effectively ruling out acute intracranial hemorrhage or mass effect. No signs of meningitis, temporal arteritis, or other emergent secondary headache etiologies. Headache may be related to her recent medication adjustment (Tirzepatide) or benign primary headache process. Given her normal exam, negative imaging, resolution of symptoms, and clinical stability, she is appropriate for discharge home with strict return precautions for recurrent or worsening headache, focal neurological changes, visual loss, fevers, or difficulty speaking/walking. She was advised to follow-up with her primary care provider for ongoing management and discussion of medication side effects. Chart reviewed and patient discussed with midlevel. Agree with assessment and plan. Lab Data Radiology Impressions Head CT 09/27/24 13:22 IMPRESSION: No acute intracranial abnormality. Discharge Plan Discharge Patient Disposition: Home Clinical Impression: Headache Qualifiers: Headache type: unspecified Headache chronicity pattern: acute headache Intractability: not intractable Qualified Code(s): R51.9 - Headache, unspecified Condition: Stable Prescriptions: No Action metoprolol tartrate 25 mg tablet 25 mg PO DAILY tirzepatide (weight loss) 5 mg/0.5 mL Pen Injector 5 mg SUBCUT Q7D Rx Instructions: Sunday' Discharge Orders: Discharge ED (Routine); Ordered 09/27/24 Ordered By: Lawrence Pearl Patient Instructions: Patient Portal & [facility]zer Instructions Activity Restrictions/Additional Instructions: Headache Discharge Instructions Discharge Instructions: Headache in the Setting of Tirzepatide Dose Escalation Diagnosis and Etiology: 69-year-old female presenting with several days of headache, worse in the morning. Head CT was negative for acute intracranial pathology. Neurological and general examination were normal. Recent increase in tirzepatide dose; headache is a recognized adverse effect of tirzepatide, most commonly occurring during dose escalation and typically mild to moderate in severity. Expected Course: - Headache associated with tirzepatide is generally self-limited and resolves as the patient acclimates to the new dose. - Most adverse events with tirzepatide, including headache, occur during the dose-escalation period and tend to decrease over time. - No evidence of secondary headache or acute intracranial process on imaging or exam. Symptom Management: - For mild to moderate headache, recommend acetaminophen or NSAIDs as first-line therapy, unless contraindicated. - Maintain adequate hydration and regular sleep. - Avoid medication overuse (limit use of analgesics to <= days per week to prevent rebound headache). - If headaches are frequent (>=0 per month) or disabling, consider preventive therapy (e.g., tricyclic antidepressants), per consensus guidelines. Tirzepatide Safety Monitoring: - Gastrointestinal adverse events (nausea, diarrhea, constipation) are most common; headache occurs in 6?13% of patients, typically during dose escalation. - Serious adverse events are rare and occur at similar rates to placebo. - Wellness Nurse Rn regarding black box warning for thyroid C-cell tumors; tirzepatide is contraindicated in patients with personal/family history of medullary thyroid carcinoma or MEN2. - Tirzepatide slows gastric emptying and may affect absorption of oral medications; review concomitant medications for potential interactions. Return Precautions: Advise immediate return to ED or contact with provider for any of the following: - Sudden, severe ( worst ever ) headache - New focal neurological deficits (weakness, numbness, vision changes, speech difficulty) - Altered mental status or confusion - Fever, neck stiffness, photophobia - Persistent vomiting or inability to tolerate oral intake - Signs of severe allergic reaction (rash, swelling, difficulty breathing) - Symptoms suggestive of pancreatitis (severe abdominal pain, persistent vomiting) Follow-Up: - Routine follow-up with primary care or endocrinology within 1?2 weeks to reassess headache and tirzepatide tolerability. - If headache persists or worsens, consider further evaluation for secondary causes. Patient Education: - Headache is a known, generally mild side effect of tirzepatide, especially after dose increases. - Most headaches resolve with time; monitor for any concerning symptoms as above. - Maintain regular medication schedule and do not discontinue tirzepatide without consulting provider. Summary: Patient is stable for discharge. Headache is likely benign and related to recent tirzepatide dose escalation. Imaging and exam are reassuring. Return precautions and follow-up have been provided. Print Language: Nigerien Coding Level of Care Code ED Track Repairer for Terry Fishman
== END 2024-09-27 15:02 | disposition home or self-care (01) ==
PROVIDERS: Emergency Provider Physician Assistant
DX: R51.9 Headache, unspecified (principal)
CPT/HCPCS: 70450; 99284